=== PATIENT | male | born 1955 | race Caucasian/White ===

== ENCOUNTER 2016-09-10 09:30 | Emergency (ER) | payer OTHER ==
[~2016-09-10] VITALS: Ht 177.8 cm; Wt 74.3 kg
[2016-09-10 09:34] VITALS: BP 126/84
[2016-09-10] MEDS ORDERED: LIDOCAINE 1%, 20ML ONE (10:12)
[2016-09-10] MEDS ORDERED: DIPH,PERTUSS(ACELL),TET VAC/PF 0.5 ML IM-VACC ONE ×2 (10:12→10:30)
[2016-09-10] MEDS ORDERED: LIDOCAINE 1%, 20ML SQ ONE (10:30)
== END 2016-09-10 11:20 | disposition home or self-care (01) ==
LOC: ED 11:07
DX: S81.812A Laceration without foreign body, left lower leg, initial encounter (principal); V29.3XXA Motorcycle rider (driver) (passenger) injured in unspecified nontraffic accident, initial encounter; Y93.I9 Activity, other involving external motion; Y99.8 Other external cause status; Y92.828 Other wilderness area as the place of occurrence of the external cause
CPT/HCPCS: 12001; 90471; 90715